=== PATIENT | female | born 1985 | race African-American/Black ===

== ENCOUNTER 2022-03-11 08:00 | Inpatient (IN) | payer OTHER ==
[2022-03-11 11:59] VITALS: BMI 29.0
[2022-03-11] MEDS ORDERED: morphine SULFATE/PF 1 MG/2 ML (2cc Syringe - QUVA) EP ONE (15:29)
[2022-03-11] MEDS ORDERED: ACETAMINOPHEN 325 MG TABLET (FP) PO PRN ×2 (15:29→15:39)
[2022-03-11] MEDS ORDERED: ONDANSETRON 4 MG/2 ML VIAL IVPUSH PRN (15:29)
[2022-03-11] MEDS ORDERED: ELECTROLYTE-148 SOLN 500 ML IV ONE (15:31)
[2022-03-11] MEDS ORDERED: CITRIC ACID/SODIUM CITRATE 30 ML UNIT-DOSE CUP PO ONE (15:31)
[2022-03-11] MEDS ORDERED: IBUPROFEN 800 MG/8 ML IJ IVPB PRN (15:39)
[2022-03-11] MEDS ORDERED: IBUPROFEN 600 MG TABLET (FP) PO PRN (15:39)
[2022-03-11] MEDS ORDERED: SENNOSIDES/DOCUSATE COMBO (SENNA PLUS) TABLET (UD) PO PRN (15:39)
[2022-03-11] MEDS ORDERED: METHYLERGONOVINE MALEATE 0.2 MG/1 ML AMP IM PRN (15:39)
[2022-03-11] MEDS ORDERED: ELECTROLYTE-148 SOLN 1,000 ML IV SCH (16:01)
[2022-03-11] MEDS ORDERED: OXYTOCIN 20 UNITS in 0.9% NS 20 UNIT/1,000 ML INFUS.BAG IV ONE (20:15)
[2022-03-12] MEDS ORDERED: oxyCODONE HCL 5 MG TABLET PO PRN ×2 (03:39)
[2022-03-12] MEDS: SIMETHICONE 80 MG TAB.CHEW (FP) PO PRN (06:22)
[2022-03-12] MEDS: IBUPROFEN 600 MG TABLET (FP) PO PRN ×2 (06:24→14:30)
[2022-03-12 07:03] LABS: BASO % 0.2 % (0-2.0); EOS % 0.4 % (0-4.5); HEMATOCRIT 27.6 % (32.4-45.2); HEMOGLOBIN 9.3 GM/dL (10.7-15.3); LYMPH % 8.6 % (8-40); MCH 27.2 pg (25.7-33.7); MCHC 33.5 g/dl (32.0-36.0); MEAN PLT VOLUME 10.9 fl (7.5-11.1); NEUT % 82.8 % (42.8-82.8); PLATELET COUNT 171 10^3/uL (134-434); RBC 3.41 M/mm3 (3.60-5.2); RDW 15.6 % (11.6-15.6); WHITE BLOOD COUNT 10.9 K/mm3 (4.0-10.0)
[2022-03-12] MEDS: PRENATAL VITAMINS W/ FOLIC ACID TABLET (FP) PO SCH (09:59)
[2022-03-12] MEDS ORDERED: BISACODYL 10 MG SUPP.RECT RC PRN (15:39)
[2022-03-13] MEDS: SIMETHICONE 80 MG TAB.CHEW (FP) PO PRN ×3 (06:56→20:56)
[2022-03-13] MEDS: IBUPROFEN 600 MG TABLET (FP) PO PRN ×2 (06:56→15:45)
[2022-03-13] MEDS: OXYTOCIN 20 UNITS in 0.9% NS 20 UNIT/1,000 ML INFUS.BAG IV SCH ×2 (07:21→08:45)
[2022-03-13] MEDS: PRENATAL VITAMINS W/ FOLIC ACID TABLET (FP) PO SCH (09:55)
[2022-03-13 20:55] VITALS: RESP 18
[2022-03-14] MEDS: SIMETHICONE 80 MG TAB.CHEW (FP) PO PRN ×2 (02:11→10:04)
[2022-03-14] MEDS: IBUPROFEN 600 MG TABLET (FP) PO PRN ×2 (02:13→11:18)
[2022-03-14] MEDS: PRENATAL VITAMINS W/ FOLIC ACID TABLET (FP) PO SCH (10:00)
[2022-03-14 11:17] VITALS: BP 96/61; PULSE 93; TEMP 97.8
== END 2022-03-14 13:15 | disposition home or self-care (01) | DRG 788 ==
LOC: JLDR 10:15 → J3W 17:30
PROVIDERS: ADMIT Obstetrics & Gynecology; ATTEND Obstetrics & Gynecology
PROC: 10D00Z1 Extraction of Products of Conception, Low, Open Approach (ICD-10-PCS; principal; 2022-03-11)
DX: O48.0 Post-term pregnancy (principal); O36.63X0 Maternal care for excessive fetal growth, third trimester, not applicable or unspecified; Z3A.41 41 weeks gestation of pregnancy; O69.81X0 Labor and delivery complicated by cord around neck, without compression, not applicable or unspecified; Z37.0 Single live birth
CPT/HCPCS: 36415; 85025; 88307-TC

== ENCOUNTER 2022-05-13 04:22 | Day surgery (SDC) | payer OTHER ==
[2022-05-12 08:33] VITALS: BMI 28.1
[2022-05-13] MEDS ORDERED: ONDANSETRON 4 MG/2 ML VIAL IVPUSH PRN (13:51)
[2022-05-13] MEDS ORDERED: LACTATED RINGERS SOLUTION 1,000 ML IV SCH (14:00)
[2022-05-13] MEDS ORDERED: ACETAMINOPHEN INJECTION 100 ML IVPB ONE (14:01)
[2022-05-13] MEDS ORDERED: PROPOFOL 20 ML ONE ×2 (14:13→14:57)
[2022-05-13] MEDS ORDERED: ROCURONIUM BROMIDE 50 MG/5 ML SYRINGE ONE (14:13)
[2022-05-13] MEDS ORDERED: ONDANSETRON 4 MG/2 ML VIAL ONE (14:14)
[2022-05-13] MEDS ORDERED: DEXAMETHASONE SOD PHOSPHATE 4 MG/1 ML VIAL ONE (14:14)
[2022-05-13] MEDS ORDERED: KETOROLAC TROMETHAMINE 30 MG/1 ML VIAL ONE (14:14)
[2022-05-13] MEDS ORDERED: MIDAZOLAM HCL 2 MG/2 ML SINGLE DOSE VIAL ONE (14:14)
[2022-05-13] MEDS ORDERED: LIDOCAINE 1%/EPI 1:100000 (20 ML MULTI DOSE VIAL) ONE (14:19)
[2022-05-13] MEDS ORDERED: BUPIVACAINE HCL/PF 0.5% (5MG/ML) 10 ML VIAL ONE (14:19)
[2022-05-13] MEDS ORDERED: LIDOCAINE HCL 2% 100 MG/5 ML DISP.SYRIN ONE (14:30)
[2022-05-13] MEDS ORDERED: ceFAZolin SODIUM 1 GM VIAL ONE ×2 (14:42)
[2022-05-13] MEDS ORDERED: ceFAZolin 2 GRAM PREMIX BAG IVPB ONE (14:42)
[2022-05-13] MEDS ORDERED: SUGAMMADEX SODIUM 200 MG/2 ML VIAL ONE (15:14)
[2022-05-13] MEDS ORDERED: NEOSTIGMINE METHYLSULFATE 0.5 MG/ML - 10 ML MDV ONE (15:14)
[2022-05-13] MEDS ORDERED: IBUPROFEN 600 MG TABLET (FP) PO PRN (15:41)
[2022-05-13] MEDS ORDERED: IBUPROFEN 800 MG/8 ML IJ IVPB PRN (15:41)
[2022-05-13] MEDS ORDERED: ACETAMINOPHEN 325 MG TABLET (FP) PO PRN (15:41)
[2022-05-13] MEDS ORDERED: oxyCODONE HCL 5 MG TABLET ONE (17:16)
[2022-05-13] MEDS ORDERED: oxyCODONE HCL 5 MG TABLET PO PRN (17:49)
[2022-05-13 18:22] VITALS: RESP 20; TEMP 97.5
[2022-05-13 18:24] VITALS: BP 118/70; PULSE 61
== END 2022-05-13 19:45 | disposition home or self-care (01) ==
LOC: JASU-SURG 04:22
PROVIDERS: ATTEND Obstetrics & Gynecology
PROC: 0U574ZZ Destruction of Bilateral Fallopian Tubes, Percutaneous Endoscopic Approach (ICD-10-PCS; principal; 2022-05-13 14:00)
DX: Z30.2 Encounter for sterilization (principal)
CPT/HCPCS: 81025; 94760